=== PATIENT | male | born 1935 | race Caucasian/White ===

== ENCOUNTER 2017-02-14 18:22 | Inpatient (IN) | payer MEDICARE, BC ==
[~2017-02-14] VITALS: Ht 170.2 cm; Wt 87.0 kg
[~2017-02-14 18:22] MED LIST: ALLO100T PO; CLON-529 PO; COLC0.6T67 PO; LISI2.5T2 PO; METO100T14 PO; POLOS RIGHTEYE; TICA90TA PO
[2017-02-14 18:49] LABS: BASOPHILS # (AUTO) 0.1 X10'3 (0-0.2); BASOPHILS % (AUTO) 0.8 % (0-1); EOSINOPHILS # (AUTO) 0.2 X10'3 (0-0.9); EOSINOPHILS % (AUTO) 1.4 % (0-6); HEMATOCRIT 44.5 % (42.0-52.0); HEMOGLOBIN 14.8 g/dl (14.0-17.9); LYMPHOCYTES # (AUTO) 1.9 X10'3 (1.1-4.8); LYMPHOCYTES % (AUTO) 15.9 % (21-51); MEAN CORPUSCULAR HEMOGLOBIN 29.2 PG (27.0-31.0); MEAN CORPUSCULAR HGB CONC 33.2 % (33.0-36.5); MEAN CORPUSCULAR VOLUME 88.1 FL (78-98); MEAN PLATELET VOLUME 8.2 FL (7.4-10.4); MONOCYTES # (AUTO) 0.6 X10'3 (0-0.9); MONOCYTES % (AUTO) 4.9 % (2-12); NEUTROPHILS # (AUTO) 9.2 X10'3 (1.8-7.7); PLATELET COUNT 225 X10'3 (140-440); RED BLOOD COUNT 5.05 X10'6 (4.70-6.10); RED CELL DISTRIBUTION WIDTH 16.8 % (11.5-14.5); WHITE BLOOD COUNT 11.9 X10'3 (4.5-11.0)
[2017-02-14 19:00] LABS: INR 1.1 INR; PARTIAL THROMBOPLASTIN TIME 49 SECONDS (22-32); PROTHROMBIN TIME 11.4 SECONDS (9.0-12.0)
[2017-02-14 19:04] LABS: ALANINE AMINOTRANSFERASE 30 U/L (12-78); ALBUMIN 3.5 G/DL (3.4-5.0); ALBUMIN/GLOBULIN RATIO 0.8 (1.1-1.5); ALKALINE PHOSPHATASE 77 IU/L (46-116); ANION GAP 13 (8-16); ASPARTATE AMINO TRANSFERASE 59 U/L (10-37); BILIRUBIN,TOTAL 0.9 MG/DL (0.1-1.0); BLOOD UREA NITROGEN 79 MG/DL (7-18); BUN/CREATININE RATIO 15.6 (5.4-32.0); CALCIUM 9.8 MG/DL (8.5-10.1); CHLORIDE 105 MMOL/L (99-107); CREATININE 5.06 MG/DL (0.60-1.10); GLUCOSE 149 MG/DL (70-104); POTASSIUM 4.5 MMOL/L (3.5-5.1); SODIUM 142 MMOL/L (135-145); TOTAL CARBON DIOXIDE 24.2 MMOL/L (24-32); TOTAL PROTEIN 7.7 G/DL (6.4-8.2); eGFR 11 ML/MIN
[2017-02-14] MEDS ORDERED: GLIP5TAB13 PO (19:24)
[2017-02-14] MEDS ORDERED: OMEG1CAP PO (19:24)
[2017-02-14] MEDS ORDERED: ATOR10TA70 PO (19:24)
[2017-02-14] MEDS ORDERED: FURO-149 PO (19:24)
[2017-02-14] MEDS ORDERED: VALS160T24 PO (19:24)
[2017-02-14 20:12] LABS: CLARITY,URINE Clear (Clear); COLOR,URINE Yellow (Yellow); GLUCOSE, URINE 100 mg/dl (Neg); KETONES,URINE Negative (Neg); LEUKOCYTE ESTERASE ,URINE Negative (Neg); NITRITES, URINE Negative (Neg); OCCULT BLOOD,URINE Moderate (Neg); PROTEIN,URINE 100 mg/dl (Neg); UROBILINOGEN,URINE 0.2 E.U/dL (0.2-1.0)
[2017-02-14 20:22] LABS: UA COLLECTION TYPE CLN CATCH MIDSTREAM
[2017-02-14 20:25] LABS: BACTERIA,URINE NONE SEEN /HPF (Neg); MUCUS STRANDS NONE SEEN /LPF (Neg); RBC,URINE 0-2 /HPF (0-2); SQUAMOUS EPITHELIAL CELL,UR FEW /LPF (FEW); WBC,URINE 0-4 /HPF (0-4)
[2017-02-14] MEDS ORDERED: HYDROcodone/acetaminophen 5mg/325mg tablet PO PRN (21:25)
[2017-02-14] MEDS ORDERED: ondansetron/PF 4mg/2ml inj IV PRN (21:25)
[2017-02-14] MEDS ORDERED: HYDROmorphone 1 mg/ml syringe IV PRN ×2 (21:25)
[2017-02-14] MEDS ORDERED: mag hydrox/Alum hydrox/simeth 30ml oral suspension PO PRN (21:25)
[2017-02-14] MEDS ORDERED: bisacodyl 10mg suppository rectal RC PRN (21:25)
[2017-02-14] MEDS ORDERED: metoclopramide 5 mg/ml inj IV PRN (21:25)
[2017-02-14] MEDS ORDERED: diphenhydrAMINE 50 mg/ml inj IV PRN (21:25)
[2017-02-14] MEDS ORDERED: glucagon, human recombinant 1mg kit SUBCUT PRN (21:25)
[2017-02-14] MEDS ORDERED: dextrose 50%-water 50ml dispensing syringe IV PRN ×2 (21:25)
[2017-02-14] MEDS ORDERED: magnesium hydroxide 30ml (MOM) UD suspension PO PRN (21:25)
[2017-02-14] MEDS ORDERED: acetaminophen 650mg rectal suppository RC PRN (21:25)
[2017-02-14] MEDS ORDERED: dextrose ORAL solution 15 GM/59 ML bottle PO PRN ×2 (21:25)
[2017-02-14] MEDS ORDERED: acetaminophen 325mg tablet PO PRN ×2 (21:25)
[2017-02-14] MEDS ORDERED: diphenhydrAMINE 25mg capsule PO PRN (21:25)
[2017-02-14] MEDS ORDERED: MESSAGE TO PHARMACY PO ONE (21:25)
[2017-02-14] MEDS ORDERED: temazepam 15mg capsule PO PRN (21:57)
[2017-02-14 22:27] LABS: HEMOGLOBIN A1C 6.7 % (4.5-6.2)
[2017-02-14 22:29] LABS: MAGNESIUM 1.9 MG/DL (1.5-2.4)
[2017-02-14 23:00] VITALS: BP 119/80
[2017-02-15] VITALS (17 sets, daily range): BP systolic 104–161; BP diastolic 65–103
[2017-02-15 02:04] LABS: BASOPHILS % (AUTO) 0.4 % (0-1); EOSINOPHILS # (AUTO) 0.2 X10'3 (0-0.9); HEMATOCRIT 43.3 % (42.0-52.0); HEMOGLOBIN 14.3 g/dl (14.0-17.9); LYMPHOCYTES # (AUTO) 2.7 X10'3 (1.1-4.8); LYMPHOCYTES % (AUTO) 23.2 % (21-51); MEAN CORPUSCULAR HEMOGLOBIN 29.4 PG (27.0-31.0); MEAN PLATELET VOLUME 8.1 FL (7.4-10.4); MONOCYTES # (AUTO) 0.9 X10'3 (0-0.9); MONOCYTES % (AUTO) 7.5 % (2-12); NEUTROPHILS # (AUTO) 7.8 X10'3 (1.8-7.7); NEUTROPHILS % (AUTO) 66.9 % (42-75); PLATELET COUNT 191 X10'3 (140-440); RED BLOOD COUNT 4.87 X10'6 (4.70-6.10); RED CELL DISTRIBUTION WIDTH 16.5 % (11.5-14.5); WHITE BLOOD COUNT 11.7 X10'3 (4.5-11.0)
[2017-02-15 02:22] LABS: ALANINE AMINOTRANSFERASE 30 U/L (12-78); ALBUMIN 3.1 G/DL (3.4-5.0); ALBUMIN/GLOBULIN RATIO 0.8 (1.1-1.5); ALKALINE PHOSPHATASE 64 IU/L (46-116); ANION GAP 13 (8-16); ASPARTATE AMINO TRANSFERASE 108 U/L (10-37); BLOOD UREA NITROGEN 74 MG/DL (7-18); BUN/CREATININE RATIO 15.3 (5.4-32.0); CALCIUM 9.2 MG/DL (8.5-10.1); CHLORIDE 107 MMOL/L (99-107); CREATININE 4.84 MG/DL (0.60-1.10); GLUCOSE 109 MG/DL (70-104); POTASSIUM 4.2 MMOL/L (3.5-5.1); SODIUM 142 MMOL/L (135-145); TOTAL CARBON DIOXIDE 22.1 MMOL/L (24-32); eGFR 12 ML/MIN
[2017-02-15] MEDS ORDERED: pneumococcal 23-VAL P-sac vacc 25 mcg/0.5ml vial IMVAC ONE (06:15)
[2017-02-15] MEDS ORDERED: ticagrelor 90mg tablet PO SCH (08:00)
[2017-02-15] MEDS: docusate sod 100mg capsule PO SCH ×2 (08:00→20:00)
[2017-02-15] MEDS ORDERED: pantoprazole 40 MG vial IV SCH (08:00)
[2017-02-15] MEDS: cloNIDine 0.1 mg tablet PO SCH (09:41)
[2017-02-15] MEDS: allopurinol 100mg tablet PO SCH (09:41)
[2017-02-15] MEDS: atorvastatin 10mg tablet PO SCH (09:41)
[2017-02-15] MEDS: normal saline 1000ml 1,000 ML IV SCH ×2 (11:09)
[2017-02-15] MEDS ORDERED: IOHEXOL 350 MG/ML 150 ML injection IV ONE (12:47)
[2017-02-15] MEDS ORDERED: iohexol 350 MG/ML 50ML vial IV ONE (12:47)
[2017-02-15] MEDS ORDERED: LIDOcaine 1%/PF (10mg/ml) 5ml vial ONE ×2 (12:47→14:09)
[2017-02-15] MEDS ORDERED: midazolam 2 mg/2 ml injection ONE (12:55)
[2017-02-15] MEDS ORDERED: sodium bicarbonate (8.4%) 1 mEq/ml syringe IV STA (13:10)
[2017-02-15] MEDS ORDERED: heparin 10,000 units/1 ML INJ IV PRN (13:35)
[2017-02-15] MEDS ORDERED: heparin 1,000unit/ml 10ml vial 10 ML ONE (13:44)
[2017-02-15] MEDS ORDERED: ticagrelor 90mg tablet ONE (13:44)
[2017-02-15] MEDS ORDERED: tirofiban 5mg in NS 100mL 100 ML IV ONE (13:44)
[2017-02-15] MEDS ORDERED: DOBUTamine-DoBUTrex 500mg/D5W 250 ML IV ONE (14:04)
[2017-02-15] MEDS ORDERED: fentaNYL/PF 50MCG/1 ML 2ML syringe ONE (15:38)
[2017-02-15] MEDS: sodium bicarbonate (8.4%) inj. 100 MEQ in dextrose 5%-water 1,000 ML IV SCH ×2 (15:42→21:58)
[2017-02-15] MEDS ORDERED: normal saline 1000ml 1,000 ML IV SCH (15:45)
[2017-02-15] MEDS ORDERED: MESSAGE TO PHARMACY PO ONE ×2 (15:45→16:15)
[2017-02-15] MEDS ORDERED: proCHLORperazine 10 MG/2 ml inj IV PRN (15:45)
[2017-02-15] MEDS ORDERED: nitroGLYCERIN 0.4mg SUBLingual tab SL PRN (15:45)
[2017-02-15] MEDS ORDERED: OXAZEpam 15mg capsule PO PRN (15:45)
[2017-02-15] MEDS: tirofiban 5mg in NS 100mL 100 ML IV SCH ×2 (15:55→20:07)
[2017-02-15] MEDS: nitroGLYCERIN-Tridil 50MG/D5W 250 ML IV SCH (16:00)
[2017-02-15 18:08] LABS: BASOPHILS % (AUTO) 0.3 % (0-1); EOSINOPHILS # (AUTO) 0.2 X10'3 (0-0.9); EOSINOPHILS % (AUTO) 1.7 % (0-6); HEMATOCRIT 37.1 % (42.0-52.0); HEMOGLOBIN 12.4 g/dl (14.0-17.9); LYMPHOCYTES # (AUTO) 1.7 X10'3 (1.1-4.8); LYMPHOCYTES % (AUTO) 18.4 % (21-51); MEAN CORPUSCULAR HEMOGLOBIN 29.4 PG (27.0-31.0); MEAN CORPUSCULAR HGB CONC 33.4 % (33.0-36.5); MEAN CORPUSCULAR VOLUME 88.1 FL (78-98); MEAN PLATELET VOLUME 7.9 FL (7.4-10.4); MONOCYTES # (AUTO) 0.5 X10'3 (0-0.9); MONOCYTES % (AUTO) 5.6 % (2-12); PLATELET COUNT 182 X10'3 (140-440); RED BLOOD COUNT 4.21 X10'6 (4.70-6.10); RED CELL DISTRIBUTION WIDTH 16.8 % (11.5-14.5); WHITE BLOOD COUNT 9.4 X10'3 (4.5-11.0)
[2017-02-15] MEDS: insulin glargine (Lantus) pen - multi-dose SQ SCH (21:15)
[2017-02-16] VITALS (24 sets, daily range): BP systolic 91–152; BP diastolic 53–89
[2017-02-16 00:31] LABS: BASOPHILS % (AUTO) 0.4 % (0-1); EOSINOPHILS # (AUTO) 0.1 X10'3 (0-0.9); EOSINOPHILS % (AUTO) 1.8 % (0-6); HEMATOCRIT 35.4 % (42.0-52.0); HEMOGLOBIN 11.7 g/dl (14.0-17.9); LYMPHOCYTES # (AUTO) 1.5 X10'3 (1.1-4.8); LYMPHOCYTES % (AUTO) 19.5 % (21-51); MEAN CORPUSCULAR HEMOGLOBIN 29.6 PG (27.0-31.0); MEAN CORPUSCULAR HGB CONC 33.1 % (33.0-36.5); MEAN CORPUSCULAR VOLUME 89.3 FL (78-98); MEAN PLATELET VOLUME 8.1 FL (7.4-10.4); MONOCYTES # (AUTO) 0.6 X10'3 (0-0.9); MONOCYTES % (AUTO) 7.7 % (2-12); NEUTROPHILS # (AUTO) 5.6 X10'3 (1.8-7.7); NEUTROPHILS % (AUTO) 70.6 % (42-75); PLATELET COUNT 168 X10'3 (140-440); RED BLOOD COUNT 3.97 X10'6 (4.70-6.10); RED CELL DISTRIBUTION WIDTH 16.6 % (11.5-14.5); WHITE BLOOD COUNT 7.9 X10'3 (4.5-11.0)
[2017-02-16 00:46] LABS: ALANINE AMINOTRANSFERASE 35 U/L (12-78); ALBUMIN 2.5 G/DL (3.4-5.0); ALBUMIN/GLOBULIN RATIO 0.7 (1.1-1.5); ALKALINE PHOSPHATASE 59 IU/L (46-116); ANION GAP 10 (8-16); ASPARTATE AMINO TRANSFERASE 119 U/L (10-37); BLOOD UREA NITROGEN 66 MG/DL (7-18); BUN/CREATININE RATIO 15.7 (5.4-32.0); CALCIUM 8.2 MG/DL (8.5-10.1); CHLORIDE 106 MMOL/L (99-107); CREATININE 4.21 MG/DL (0.60-1.10); GLUCOSE 204 MG/DL (70-104); SODIUM 139 MMOL/L (135-145); TOTAL CARBON DIOXIDE 23.5 MMOL/L (24-32); TOTAL PROTEIN 5.9 G/DL (6.4-8.2); eGFR 14 ML/MIN
[2017-02-16] MEDS: sodium bicarbonate (8.4%) inj. 100 MEQ in dextrose 5%-water 1,000 ML IV SCH ×2 (02:13→10:13)
[2017-02-16] MEDS: cyclobenzaprine 10mg tablet PO PRN ×2 (03:16→21:27)
[2017-02-16] MEDS: atorvastatin 10mg tablet PO SCH (08:23)
[2017-02-16] MEDS: cloNIDine 0.1 mg tablet PO SCH (08:23)
[2017-02-16] MEDS: docusate sod 100mg capsule PO SCH ×2 (08:24→20:00)
[2017-02-16] MEDS: allopurinol 100mg tablet PO SCH (08:24)
[2017-02-16] MEDS: ticagrelor 90mg tablet PO SCH ×2 (08:24→21:27)
[2017-02-16] MEDS: pantoprazole 40mg Tablet.DR PO SCH (08:24)
[2017-02-16] MEDS: HYDROcodone/acetaminophen 10/325mg tab PO PRN (08:32)
[2017-02-16] MEDS ORDERED: pneumococcal 23-VAL P-sac vacc 25 mcg/0.5ml vial IMVAC ONE (09:00)
[2017-02-16] MEDS ORDERED: LIDOcaine 1%/PF (10mg/ml) 5ml vial ONE (13:19)
[2017-02-16] MEDS: colchicine 0.6mg tablet PO SCH (14:39)
[2017-02-16 15:50] LABS: ALANINE AMINOTRANSFERASE 40 U/L (12-78); ALBUMIN 3.2 G/DL (3.4-5.0); ALBUMIN/GLOBULIN RATIO 0.7 (1.1-1.5); ALKALINE PHOSPHATASE 66 IU/L (46-116); ANION GAP 10 (8-16); ASPARTATE AMINO TRANSFERASE 104 U/L (10-37); BILIRUBIN,TOTAL 1.9 MG/DL (0.1-1.0); BLOOD UREA NITROGEN 65 MG/DL (7-18); CALCIUM 9.1 MG/DL (8.5-10.1); CHLORIDE 100 MMOL/L (99-107); CREATININE 4.32 MG/DL (0.60-1.10); GLUCOSE 159 MG/DL (70-104); PHOSPHORUS 3.9 MG/DL (2.3-4.5); POTASSIUM 4.2 MMOL/L (3.5-5.1); SODIUM 137 MMOL/L (135-145); TOTAL PROTEIN 7.6 G/DL (6.4-8.2); eGFR 13 ML/MIN
[2017-02-16] MEDS: nitroGLYCERIN-Tridil 50MG/D5W 250 ML IV SCH (16:00)
[2017-02-16] MEDS: insulin Lispro (HumaLOG) vial - multi-dose SQ SCH (21:26)
[2017-02-16] MEDS: insulin glargine (Lantus) pen - multi-dose SQ SCH (21:26)
[2017-02-17] VITALS (18 sets, daily range): BP systolic 83–128; BP diastolic 51–80
[2017-02-17 05:14] LABS: BASOPHILS % (AUTO) 0.2 % (0-1); EOSINOPHILS # (AUTO) 0.2 X10'3 (0-0.9); EOSINOPHILS % (AUTO) 1.9 % (0-6); HEMATOCRIT 36.4 % (42.0-52.0); LYMPHOCYTES # (AUTO) 1.5 X10'3 (1.1-4.8); LYMPHOCYTES % (AUTO) 13.2 % (21-51); MEAN CORPUSCULAR HEMOGLOBIN 29.3 PG (27.0-31.0); MEAN CORPUSCULAR HGB CONC 32.9 % (33.0-36.5); MEAN CORPUSCULAR VOLUME 89.2 FL (78-98); MEAN PLATELET VOLUME 8.8 FL (7.4-10.4); MONOCYTES # (AUTO) 1.2 X10'3 (0-0.9); MONOCYTES % (AUTO) 10.3 % (2-12); NEUTROPHILS # (AUTO) 8.5 X10'3 (1.8-7.7); NEUTROPHILS % (AUTO) 74.4 % (42-75); PLATELET COUNT 156 X10'3 (140-440); RED BLOOD COUNT 4.08 X10'6 (4.70-6.10); RED CELL DISTRIBUTION WIDTH 17.3 % (11.5-14.5); WHITE BLOOD COUNT 11.5 X10'3 (4.5-11.0)
[2017-02-17 06:15] LABS: ALANINE AMINOTRANSFERASE 29 U/L (12-78); ALBUMIN 2.5 G/DL (3.4-5.0); ALBUMIN/GLOBULIN RATIO 0.7 (1.1-1.5); ALKALINE PHOSPHATASE 53 IU/L (46-116); ANION GAP 12 (8-16); ASPARTATE AMINO TRANSFERASE 52 U/L (10-37); BILIRUBIN,TOTAL 1.9 MG/DL (0.1-1.0); BLOOD UREA NITROGEN 66 MG/DL (7-18); BUN/CREATININE RATIO 13.8 (5.4-32.0); CALCIUM 8.6 MG/DL (8.5-10.1); CHLORIDE 103 MMOL/L (99-107); CREATININE 4.78 MG/DL (0.60-1.10); GLUCOSE 130 MG/DL (70-104); PHOSPHORUS 4.4 MG/DL (2.3-4.5); POTASSIUM 4.2 MMOL/L (3.5-5.1); SODIUM 139 MMOL/L (135-145); TOTAL CARBON DIOXIDE 23.7 MMOL/L (24-32); TOTAL PROTEIN 6.2 G/DL (6.4-8.2); eGFR 12 ML/MIN
[2017-02-17] MEDS: allopurinol 100mg tablet PO SCH (08:08)
[2017-02-17] MEDS: cloNIDine 0.1 mg tablet PO SCH (08:08)
[2017-02-17] MEDS: atorvastatin 10mg tablet PO SCH (08:09)
[2017-02-17] MEDS: ticagrelor 90mg tablet PO SCH ×2 (08:09→20:49)
[2017-02-17] MEDS: colchicine 0.6mg tablet PO SCH (08:09)
[2017-02-17] MEDS: pantoprazole 40mg Tablet.DR PO SCH (08:10)
[2017-02-17] MEDS: docusate sod 100mg capsule PO SCH ×2 (08:10→20:00)
[2017-02-17] MEDS: insulin Lispro (HumaLOG) vial - multi-dose SQ SCH ×2 (09:35→18:59)
[2017-02-17] MEDS: nitroGLYCERIN-Tridil 50MG/D5W 250 ML IV SCH (15:59)
[2017-02-17 16:44] LABS: ALANINE AMINOTRANSFERASE 27 U/L (12-78); ALBUMIN 2.5 G/DL (3.4-5.0); ALBUMIN/GLOBULIN RATIO 0.6 (1.1-1.5); ALKALINE PHOSPHATASE 61 IU/L (46-116); ANION GAP 14 (8-16); ASPARTATE AMINO TRANSFERASE 43 U/L (10-37); BILIRUBIN,TOTAL 1.7 MG/DL (0.1-1.0); BLOOD UREA NITROGEN 70 MG/DL (7-18); BUN/CREATININE RATIO 13.9 (5.4-32.0); CALCIUM 8.7 MG/DL (8.5-10.1); CHLORIDE 102 MMOL/L (99-107); CREATININE 5.02 MG/DL (0.60-1.10); GLUCOSE 195 MG/DL (70-104); PHOSPHORUS 4.1 MG/DL (2.3-4.5); POTASSIUM 4.5 MMOL/L (3.5-5.1); SODIUM 138 MMOL/L (135-145); TOTAL CARBON DIOXIDE 21.8 MMOL/L (24-32); TOTAL PROTEIN 6.4 G/DL (6.4-8.2); eGFR 11 ML/MIN
[2017-02-17] MEDS: HYDROcodone/acetaminophen 10/325mg tab PO PRN (20:49)
[2017-02-17] MEDS: insulin glargine (Lantus) pen - multi-dose SQ SCH (20:53)
[2017-02-18] VITALS (13 sets, daily range): BP systolic 102–146; BP diastolic 59–85
[2017-02-18 06:06] LABS: BASOPHILS % (AUTO) 0.2 % (0-1); EOSINOPHILS # (AUTO) 0.3 X10'3 (0-0.9); EOSINOPHILS % (AUTO) 2.4 % (0-6); HEMATOCRIT 35.2 % (42.0-52.0); HEMOGLOBIN 11.6 g/dl (14.0-17.9); LYMPHOCYTES % (AUTO) 18.4 % (21-51); MEAN CORPUSCULAR HEMOGLOBIN 29.3 PG (27.0-31.0); MEAN CORPUSCULAR VOLUME 88.8 FL (78-98); MEAN PLATELET VOLUME 9.1 FL (7.4-10.4); MONOCYTES % (AUTO) 9.2 % (2-12); NEUTROPHILS # (AUTO) 7.7 X10'3 (1.8-7.7); NEUTROPHILS % (AUTO) 69.8 % (42-75); PLATELET COUNT 147 X10'3 (140-440); RED BLOOD COUNT 3.97 X10'6 (4.70-6.10); RED CELL DISTRIBUTION WIDTH 16.3 % (11.5-14.5); WHITE BLOOD COUNT 11.1 X10'3 (4.5-11.0)
[2017-02-18 07:20] LABS: ALANINE AMINOTRANSFERASE 21 U/L (12-78); ALBUMIN 2.4 G/DL (3.4-5.0); ALBUMIN/GLOBULIN RATIO 0.6 (1.1-1.5); ALKALINE PHOSPHATASE 53 IU/L (46-116); ANION GAP 14 (8-16); ASPARTATE AMINO TRANSFERASE 21 U/L (10-37); BILIRUBIN,TOTAL 1.7 MG/DL (0.1-1.0); BLOOD UREA NITROGEN 77 MG/DL (7-18); BUN/CREATININE RATIO 13.2 (5.4-32.0); CALCIUM 8.8 MG/DL (8.5-10.1); CHLORIDE 102 MMOL/L (99-107); CREATININE 5.82 MG/DL (0.60-1.10); GLUCOSE 123 MG/DL (70-104); PHOSPHORUS 5.4 MG/DL (2.3-4.5); SODIUM 139 MMOL/L (135-145); TOTAL CARBON DIOXIDE 23.4 MMOL/L (24-32); TOTAL PROTEIN 6.4 G/DL (6.4-8.2); eGFR 9 ML/MIN
[2017-02-18] MEDS: docusate sod 100mg capsule PO SCH ×2 (08:00→20:50)
[2017-02-18] MEDS: cloNIDine 0.1 mg tablet PO SCH (08:02)
[2017-02-18] MEDS: allopurinol 100mg tablet PO SCH (08:02)
[2017-02-18] MEDS: pantoprazole 40mg Tablet.DR PO SCH (08:02)
[2017-02-18] MEDS: atorvastatin 10mg tablet PO SCH (08:03)
[2017-02-18] MEDS: ticagrelor 90mg tablet PO SCH ×2 (08:03→20:50)
[2017-02-18] MEDS: insulin Lispro (HumaLOG) vial - multi-dose SQ SCH ×2 (08:08→12:43)
[2017-02-18] MEDS: colchicine 0.6mg tablet PO SCH (08:15)
[2017-02-18 15:33] LABS: ALANINE AMINOTRANSFERASE 20 U/L (12-78); ALBUMIN 2.2 G/DL (3.4-5.0); ALBUMIN/GLOBULIN RATIO 0.6 (1.1-1.5); ALKALINE PHOSPHATASE 53 IU/L (46-116); ANION GAP 13 (8-16); ASPARTATE AMINO TRANSFERASE 22 U/L (10-37); BILIRUBIN,TOTAL 1.2 MG/DL (0.1-1.0); BLOOD UREA NITROGEN 86 MG/DL (7-18); BUN/CREATININE RATIO 14.2 (5.4-32.0); CALCIUM 8.3 MG/DL (8.5-10.1); CHLORIDE 102 MMOL/L (99-107); CREATININE 6.05 MG/DL (0.60-1.10); GLUCOSE 125 MG/DL (70-104); POTASSIUM 4.1 MMOL/L (3.5-5.1); SODIUM 137 MMOL/L (135-145); TOTAL CARBON DIOXIDE 22.4 MMOL/L (24-32); TOTAL PROTEIN 6.1 G/DL (6.4-8.2); eGFR 9 ML/MIN
[2017-02-18] MEDS: nitroGLYCERIN-Tridil 50MG/D5W 250 ML IV SCH (16:00)
[2017-02-18] MEDS ORDERED: epiNEPHrine 1 mg/ml inj ONE (17:47)
[2017-02-18] MEDS ORDERED: LIDOcaine 1% 30ml vial 30 ML ONE (17:48)
[2017-02-18] MEDS ORDERED: fentaNYL/PF 50MCG/1 ML 2ML syringe ONE (18:22)
[2017-02-18] MEDS ORDERED: midazolam 2 mg/2 ml injection ONE (18:22)
[2017-02-18] MEDS ORDERED: propofol inj 20 ML IV ONE ×2 (18:38→18:53)
[2017-02-18] MEDS ORDERED: LIDOcaine 1% 30ml vial IJ ONE (18:53)
[2017-02-18] MEDS ORDERED: epiNEPHrine 1 MG/ML 1 ml ampule **BRONCH ONLY IJ ONE (18:55)
[2017-02-18] MEDS ORDERED: ringers solution, lacted 1,000 ML IV SCH (19:01)
[2017-02-18] MEDS ORDERED: proCHLORperazine 10 MG/2 ml inj IV PRN (19:05)
[2017-02-18] MEDS ORDERED: meperidine/PF 25mg/ml syringe IV PRN ×3 (19:05)
[2017-02-18] MEDS ORDERED: ondansetron/PF 4mg/2ml inj IV PRN (19:05)
[2017-02-18] MEDS: insulin glargine (Lantus) pen - multi-dose SQ SCH (20:50)
[2017-02-19 03:00] VITALS: BP 137/79
[2017-02-19 05:45] LABS: BASOPHILS % (AUTO) 0.3 % (0-1); EOSINOPHILS # (AUTO) 0.3 X10'3 (0-0.9); EOSINOPHILS % (AUTO) 3.1 % (0-6); HEMATOCRIT 32.9 % (42.0-52.0); HEMOGLOBIN 10.9 g/dl (14.0-17.9); LYMPHOCYTES # (AUTO) 1.3 X10'3 (1.1-4.8); LYMPHOCYTES % (AUTO) 14.9 % (21-51); MEAN CORPUSCULAR HEMOGLOBIN 29.3 PG (27.0-31.0); MEAN PLATELET VOLUME 9.1 FL (7.4-10.4); MONOCYTES # (AUTO) 0.6 X10'3 (0-0.9); MONOCYTES % (AUTO) 7.1 % (2-12); NEUTROPHILS # (AUTO) 6.7 X10'3 (1.8-7.7); NEUTROPHILS % (AUTO) 74.6 % (42-75); PLATELET COUNT 147 X10'3 (140-440); RED CELL DISTRIBUTION WIDTH 16.6 % (11.5-14.5)
[2017-02-19] MEDS: docusate sod 100mg capsule PO SCH (08:00)
[2017-02-19 08:16] LABS: ALANINE AMINOTRANSFERASE 21 U/L (12-78); ALBUMIN 2.2 G/DL (3.4-5.0); ALBUMIN/GLOBULIN RATIO 0.6 (1.1-1.5); ALKALINE PHOSPHATASE 53 IU/L (46-116); ANION GAP 16 (8-16); ASPARTATE AMINO TRANSFERASE 18 U/L (10-37); BILIRUBIN,TOTAL 0.9 MG/DL (0.1-1.0); BLOOD UREA NITROGEN 86 MG/DL (7-18); BUN/CREATININE RATIO 14.5 (5.4-32.0); CALCIUM 8.2 MG/DL (8.5-10.1); CHLORIDE 104 MMOL/L (99-107); CREATININE 5.94 MG/DL (0.60-1.10); GLUCOSE 133 MG/DL (70-104); PHOSPHORUS 6.3 MG/DL (2.3-4.5); POTASSIUM 3.8 MMOL/L (3.5-5.1); SODIUM 140 MMOL/L (135-145); TOTAL CARBON DIOXIDE 20.1 MMOL/L (24-32); TOTAL PROTEIN 6.2 G/DL (6.4-8.2); eGFR 9 ML/MIN
[2017-02-19] MEDS: colchicine 0.6mg tablet PO SCH (08:35)
[2017-02-19] MEDS: allopurinol 100mg tablet PO SCH (08:36)
[2017-02-19] MEDS: pantoprazole 40mg Tablet.DR PO SCH (08:36)
[2017-02-19] MEDS: ticagrelor 90mg tablet PO SCH (08:36)
[2017-02-19] MEDS: atorvastatin 10mg tablet PO SCH (08:37)
[2017-02-19] MEDS: HYDROcodone/acetaminophen 10/325mg tab PO PRN (08:37)
[2017-02-19] MEDS: cloNIDine 0.1 mg tablet PO SCH (08:38)
[2017-02-19 11:00] VITALS: BP 110/78
== END 2017-02-19 14:00 | DRG 242 ==
LOC: ER 18:23 → ED HOLD 21:24 → PCU 3S 22:35 → ICU 2S 02-15 12:30 → CICU 2S 02-16 05:18 → PCU 3S 02-17 14:35
PROVIDERS: ADMIT Family Medicine; ATTEND Internal Medicine Critical Care Medicine
PROC: 027034Z Dilation of Coronary Artery, One Artery with Drug-eluting Intraluminal Device, Percutaneous Approach (ICD-10-PCS; 2017-02-15)
PROC: 5A12012 Performance of Cardiac Output, Single, Manual (ICD-10-PCS; 2017-02-15)
PROC: B2111ZZ Fluoroscopy of Multiple Coronary Arteries using Low Osmolar Contrast (ICD-10-PCS; 2017-02-15)
PROC: 02H63JZ Insertion of Pacemaker Lead into Right Atrium, Percutaneous Approach (ICD-10-PCS; 2017-02-18)
PROC: 02HK3JZ Insertion of Pacemaker Lead into Right Ventricle, Percutaneous Approach (ICD-10-PCS; 2017-02-18)
PROC: 0JH606Z Insertion of Pacemaker, Dual Chamber into Chest Subcutaneous Tissue and Fascia, Open Approach (ICD-10-PCS; principal; 2017-02-18 18:21)
DX: I21.19 ST elevation (STEMI) myocardial infarction involving other coronary artery of inferior wall (principal); I46.9 Cardiac arrest, cause unspecified; N17.9 Acute kidney failure, unspecified; I44.2 Atrioventricular block, complete; I13.2 Hypertensive heart and chronic kidney disease with heart failure and with stage 5 chronic kidney disease, or end stage renal disease; N18.5 Chronic kidney disease, stage 5; I50.20 Unspecified systolic (congestive) heart failure; M25.562 Pain in left knee; I95.9 Hypotension, unspecified; E11.65 Type 2 diabetes mellitus with hyperglycemia; Z96.643 Presence of artificial hip joint, bilateral; E11.22 Type 2 diabetes mellitus with diabetic chronic kidney disease; E66.9 Obesity, unspecified; M10.9 Gout, unspecified; D64.9 Anemia, unspecified; E78.00 Pure hypercholesterolemia, unspecified; I25.10 Atherosclerotic heart disease of native coronary artery without angina pectoris; Z90.49 Acquired absence of other specified parts of digestive tract; Z93.3 Colostomy status; Z88.6 Allergy status to analgesic agent; Z88.8 Allergy status to other drugs, medicaments and biological substances; Z79.899 Other long term (current) drug therapy; Z23 Encounter for immunization; Z68.30 Body mass index [BMI] 30.0-30.9, adult; Z95.5 Presence of coronary angioplasty implant and graft
CPT/HCPCS: 93454; 99285; C9600; 36415; 71048; 76000; 80053; 81001; 82948; 83036; 83690; 83735; 83880; 84100; 84443; 84484; 85025; 85347; 85610; 85730; 87070; 93005; 97110; 97116; 97161; 97530; 99152; 99153; A4565; A4620; A4649; A6257; A6449; A7000; C1725; C1769; C1785; C1874; C9113; J0171; J1250; J1644; J1815; J2001; J2250; J2704; J3010; J3246; J3490; J7030; J7120; Q9967

== ENCOUNTER 2019-08-22 12:58 | Outpatient (CLI) | payer MEDICARE, BC ==
[~2019-08-22 12:58] MED LIST changes: +ATOR10TA70 PO; -CLON-529 PO; -COLC0.6T67 PO; +FURO-149 PO; +HYDR-4069 PO; +LABE100T5 PO; -LISI2.5T2 PO; -METO100T14 PO; +MULT-25 PO; +NATE120T PO; -POLOS RIGHTEYE
== END 2019-08-22 23:59 | disposition home or self-care (01) ==
LOC: CARD DIAG 12:58
PROVIDERS: ATTEND Internal Medicine Cardiovascular Disease
DX: I08.3 Combined rheumatic disorders of mitral, aortic and tricuspid valves (principal)
CPT/HCPCS: 93306

== ENCOUNTER 2019-09-20 06:05 | Day surgery (SDC) | payer MEDICARE, BC ==
[2019-09-19 12:58] LABS: BASOPHILS % (AUTO) 0.4 % (0-1); EOSINOPHILS # (AUTO) 0.2 X10'3 (0-0.9); EOSINOPHILS % (AUTO) 1.9 % (0-6); HEMATOCRIT 35.5 % (42.0-52.0); HEMOGLOBIN 11.6 g/dl (14.0-17.9); LYMPHOCYTES # (AUTO) 1.8 X10'3 (1.1-4.8); LYMPHOCYTES % (AUTO) 19.3 % (21-51); MEAN CORPUSCULAR HEMOGLOBIN 29.1 PG (27.0-31.0); MEAN CORPUSCULAR HGB CONC 32.5 g/dL (33.0-36.5); MEAN CORPUSCULAR VOLUME 89.4 FL (78-98); MONOCYTES # (AUTO) 0.6 X10'3 (0-0.9); MONOCYTES % (AUTO) 6.2 % (2-12); NEUTROPHILS # (AUTO) 6.7 X10'3 (1.8-7.7); NEUTROPHILS % (AUTO) 72.2 % (42-75); PLATELET COUNT 187 X10'3 (140-440); RED BLOOD COUNT 3.98 X10'6 (4.70-6.10); WHITE BLOOD COUNT 9.2 X10'3 (4.5-11.0)
[2019-09-19 13:11] LABS: PARTIAL THROMBOPLASTIN TIME 30 SECONDS (22-32)
[2019-09-19 13:16] LABS: ALBUMIN 3.6 G/DL (3.4-5.0); ANION GAP 10 (8-16); BLOOD UREA NITROGEN 32 MG/DL (7-18); BUN/CREATININE RATIO 5.2 (5.4-32.0); CALCIUM 9.1 MG/DL (8.5-10.1); CHLORIDE 101 MMOL/L (99-107); CREATININE 6.19 MG/DL (0.60-1.10); GLUCOSE 157 MG/DL (70-104); POTASSIUM 4.8 MMOL/L (3.5-5.1); SODIUM 139 MMOL/L (135-145); TOTAL CARBON DIOXIDE 27.9 MMOL/L (24-32); eGFR 9 ML/MIN
[~2019-09-20] VITALS: Ht 170.2 cm; Wt 84.9 kg
[2019-09-20] VITALS (11 sets, daily range): BP systolic 98–151; BP diastolic 51–75
[2019-09-20] MEDS ORDERED: acetylcysteine 200 MG/ml 4ml vial PO PRN (06:30)
[2019-09-20] MEDS ORDERED: SEVE800T8 PO (06:35)
[2019-09-20] MEDS ORDERED: APIX5TAB3 PO (06:35)
[2019-09-20] MEDS ORDERED: hydralazine PO (06:35)
[2019-09-20] MEDS ORDERED: TICA60TA PO (06:35)
[2019-09-20] MEDS ORDERED: LORazepam 0.5 MG tablet PO PRN (06:35)
[2019-09-20] MEDS ORDERED: FOLI1TAB34 PO (06:35)
[2019-09-20] MEDS ORDERED: normal saline 1,000 ML IV SCH (06:35)
[2019-09-20] MEDS ORDERED: CARV6.253 PO (06:41)
[2019-09-20] MEDS ORDERED: LOSA25TA96 PO (06:41)
[2019-09-20] MEDS ORDERED: ACET600C PO (06:41)
[2019-09-20] MEDS ORDERED: sodium bicarbonate (8.4%) inj. 150 ML in dextrose 5%-water 1,000 ML IV ONE (06:55)
--- NOTE | 2019-09-20 07:00 | NUR ---
Emptied pt colostomy bag 50ml liquid brown stool.
[2019-09-20] MEDS ORDERED: nitroGLYCERIN-Tridil 50MG/D5W 250 ML IV ONE (07:46)
[2019-09-20] MEDS ORDERED: midazolam 2 mg/2 ml injection ONE (07:46)
[2019-09-20] MEDS ORDERED: verapamil 2.5 mg/ml inj IV ONE (07:46)
[2019-09-20] MEDS ORDERED: iohexol 350 MG/ML 50ML vial IV ONE (07:47)
[2019-09-20] MEDS ORDERED: fentaNYL/PF 50MCG/1 ML 2ML syringe ONE (07:47)
[2019-09-20] MEDS ORDERED: LIDOcaine 1% (10mg/ml)w/preservative injection 20ml MDV ONE (07:47)
[2019-09-20] MEDS ORDERED: iohexol 350MG/ML 100ml bottle IV ONE ×2 (07:47→08:50)
[2019-09-20] MEDS ORDERED: heparin 1,000unit/ml 10ml vial 10 ML ONE (07:47)
[2019-09-20] MEDS ORDERED: heparin 25,000 UNIT/250ml bag 250 ML IV ONE (08:50)
[2019-09-20] MEDS ORDERED: ticagrelor 90mg tablet ONE (09:10)
[2019-09-20] MEDS ORDERED: heparin 25,000 UNIT/250ml bag 250 ML IV SCH (10:00)
--- NOTE | 2019-09-20 10:30 | NUR ---
Heparin stopped as ordered
--- NOTE | 2019-09-20 10:45 | NUR ---
pt ate 100% of breakfast tray. 350ml oral fluid intake.
[2019-09-20 11:01] LABS: ISTAT HGB ART 10.9 g/dl (14.0-18.0); ISTAT Hct ART 32 %PCV (42-52); ISTAT O2 SATURATION ARTERIAL 97 % (95-98); ISTAT SOURCE ART
--- NOTE | 2019-09-20 12:00 | NUR ---
burped pt colostomy bag.
--- NOTE | 2019-09-20 12:30 | NUR ---
Pt ate 100% of lunch tray.
== END 2019-09-20 16:00 | disposition home or self-care (01) ==
LOC: SSTAY O 06:05
PROVIDERS: ATTEND Internal Medicine Cardiovascular Disease
DX: R06.02 Shortness of breath (principal); R53.83 Other fatigue; I25.10 Atherosclerotic heart disease of native coronary artery without angina pectoris; E11.22 Type 2 diabetes mellitus with diabetic chronic kidney disease; I13.2 Hypertensive heart and chronic kidney disease with heart failure and with stage 5 chronic kidney disease, or end stage renal disease; N18.6 End stage renal disease; I50.22 Chronic systolic (congestive) heart failure; I48.0 Paroxysmal atrial fibrillation; E78.49 Other hyperlipidemia; I49.5 Sick sinus syndrome; Z95.5 Presence of coronary angioplasty implant and graft; Z99.2 Dependence on renal dialysis; Z93.3 Colostomy status; Z88.8 Allergy status to other drugs, medicaments and biological substances
CPT/HCPCS: 36415; 76937; 80048; 82803; 85014; 85025; 85347; 85610; 85730; 93005; 93460; 99152; 99153; C1725; C1751; C1769; C1874; C1894; C9600; J1644; J2001; J2250; J3010; J7030; Q9967; 93458; A4620; A5120; A6258; J3490

== ENCOUNTER 2021-11-29 20:03 | Inpatient (IN) | payer MEDICARE, BC ==
[~2021-11-29] VITALS: Ht 172.7 cm; Wt 90.9 kg
[~2021-11-29 20:03] MED LIST changes: +ACET600C PO; +APIX5TAB3 PO; +CARV6.253 PO; +FOLI1TAB34 PO; -HYDR-4069 PO; -LABE100T5 PO; +LOSA25TA96 PO; -MULT-25 PO; +SEVE800T8 PO; +TICA60TA PO; -TICA90TA PO
[2021-11-29] MEDS ORDERED: ondansetron/PF 4mg/2ml inj IV ONE (21:20)
[2021-11-29 21:34] LABS: BASOPHILS # (AUTO) 0.1 X10'3 (0-0.2); BASOPHILS % (AUTO) 0.6 % (0-1); EOSINOPHILS # (AUTO) 0.1 X10'3 (0-0.9); EOSINOPHILS % (AUTO) 0.7 % (0-6); HEMATOCRIT 46.8 % (42.0-52.0); LYMPHOCYTES # (AUTO) 1.1 X10'3 (1.1-4.8); LYMPHOCYTES % (AUTO) 11.5 % (21-51); MEAN CORPUSCULAR HEMOGLOBIN 29.4 PG (27.0-31.0); MEAN CORPUSCULAR VOLUME 91.9 FL (78-98); MEAN PLATELET VOLUME 8.8 FL (7.4-10.4); MONOCYTES # (AUTO) 0.6 X10'3 (0-0.9); MONOCYTES % (AUTO) 5.9 % (2-12); NEUTROPHILS # (AUTO) 7.7 X10'3 (1.8-7.7); NEUTROPHILS % (AUTO) 81.3 % (42-75); PLATELET COUNT 152 X10'3 (140-440); RED BLOOD COUNT 5.09 X10'6 (4.70-6.10); RED CELL DISTRIBUTION WIDTH 19.7 % (11.5-14.5); WHITE BLOOD COUNT 9.4 X10'3 (4.5-11.0)
[2021-11-29 21:51] LABS: ALANINE AMINOTRANSFERASE 12 U/L (12-78); ALBUMIN/GLOBULIN RATIO 0.7 (1.1-1.5); ALKALINE PHOSPHATASE 115 IU/L (46-116); ANION GAP 8 (8-16); ASPARTATE AMINO TRANSFERASE 22 U/L (10-37); BILIRUBIN,TOTAL 2.8 MG/DL (0.1-1.0); BLOOD UREA NITROGEN 22 MG/DL (7-18); BUN/CREATININE RATIO 4.8 (5.4-32.0); CALCIUM 8.6 MG/DL (8.5-10.1); CHLORIDE 98 MMOL/L (99-107); CREATININE 4.61 MG/DL (0.60-1.10); GLUCOSE 95 MG/DL (70-104); SODIUM 141 MMOL/L (135-145); TOTAL CARBON DIOXIDE 35.2 MMOL/L (24-32); TOTAL PROTEIN 7.6 G/DL (6.4-8.2); eGFR 12 ML/MIN
[2021-11-29 21:54] LABS: MAGNESIUM 2.3 MG/DL (1.5-2.4)
[2021-11-29 21:57] LABS: ANISOCYTOSIS 2+; PLATELET ESTIMATE NORMAL
[2021-11-29 21:58] LABS: TARGET CELLS 1+
[2021-11-29] MEDS ORDERED: heparin 10,000 units/1 ML INJ IV PRN (22:20)
[2021-11-29] MEDS ORDERED: heparin 10,000 units/1 ML INJ IV ONE (22:20)
[2021-11-29] MEDS: heparin 25,000 UNIT/250ml bag 250 ML IV PRN (23:05)
[2021-11-30] MEDS ORDERED: diphenhydrAMINE 25mg capsule PO PRN (00:20)
[2021-11-30] MEDS ORDERED: ondansetron 4mg rapidly disintigrating tab PO PRN (00:20)
[2021-11-30] MEDS ORDERED: acetaminophen 650mg rectal suppository RC PRN (00:20)
[2021-11-30] MEDS ORDERED: mag hydrox/Alum hydrox/simeth 30ml oral suspension PO PRN (00:20)
[2021-11-30] MEDS ORDERED: bisacodyl 10mg suppository rectal RC PRN (00:20)
[2021-11-30] MEDS ORDERED: diphenhydrAMINE 50 mg/ml inj IV PRN (00:20)
[2021-11-30] MEDS ORDERED: acetaminophen 325mg tablet PO PRN ×2 (00:20)
[2021-11-30] MEDS ORDERED: HYDROcodone/acetaminophen 5mg/325mg tablet PO PRN (00:20)
[2021-11-30] MEDS ORDERED: magnesium hydroxide 30ml (MOM) UD suspension PO PRN (00:20)
[2021-11-30] MEDS ORDERED: morphine 2 MG/ML inj. syringe IV PRN ×2 (00:20)
[2021-11-30] MEDS ORDERED: HYDROcodone/acetaminophen 10/325mg tab PO PRN (00:20)
[2021-11-30] MEDS ORDERED: glucagon, human recombinant 1mg kit SUBCUT PRN (00:25)
[2021-11-30] MEDS ORDERED: DEXTROSE 15 GM of carb/4 tabs (each vial/BOTTLE has 4 tablets) PO PRN ×2 (00:25)
[2021-11-30] MEDS ORDERED: dextrose 50%-water 50ml dispensing syringe IV PRN ×2 (00:25)
[2021-11-30] MEDS ORDERED: MESSAGE TO PHARMACY PO ONE (00:25)
[2021-11-30] MEDS ORDERED: insulin Lispro (HumaLOG) vial - multi-dose SQ SCH (00:25)
[2021-11-30] MEDS: normal saline 1000ml 1,000 ML IV SCH (00:35)
[2021-11-30] MEDS: ampicill/sulbac 1.5gm/NS 100ml 100 ML IV SCH (02:41)
[2021-11-30] MEDS ORDERED: HYDR-4069 PO (04:23)
[2021-11-30] MEDS ORDERED: SEVE800T7 PO (04:23)
[2021-11-30] MEDS ORDERED: DOCU50CA13 PO (04:23)
[2021-11-30] MEDS ORDERED: PRAV40TA3 PO (04:23)
[2021-11-30] MEDS ORDERED: OMEG1CAP13 PO (04:23)
[2021-11-30] MEDS ORDERED: CLOP75TA34 PO (04:23)
[2021-11-30] MEDS ORDERED: MIDO10TA PO (04:23)
--- NOTE | 2021-11-30 07:26 | NUR ---
REPORT GIVEN TO CLAIRE JASMINE.
--- NOTE | 2021-11-30 07:27 | NUR ---
Patient in room ED 5. I have received report from CLAIRE CORTEZ FROM ER and had the opportunity to ask questions and assume patient care.
[2021-11-30] MEDS: docusate sod 100mg capsule PO SCH ×2 (09:12→20:00)
[2021-11-30] MEDS: pantoprazole 40mg Tablet.DR PO SCH (09:12)
[2021-11-30 10:00] VITALS: BP 78/52
[2021-11-30] MEDS: heparin 25,000 UNIT/250ml bag 250 ML IV PRN (12:17)
[2021-11-30] MEDS ORDERED: normal saline 500ml IV soln 500 ML IV ONE ×2 (12:37→12:55)
[2021-11-30] MEDS ORDERED: vancomycin/NS 1 GM ADD-VANTAGE 250 ML IV ONE (13:10)
[2021-11-30] MEDS ORDERED: cefepime 1GM/NS ADD-VANTAGE 100 ML IV ONE (13:10)
--- NOTE | 2021-11-30 13:15 | NUR ---
PER DR PATIENT CAN HAVE 250ML BOLUSES TO KEEP MAP 60 AND HIGHER UP TO 1000 MLS
[2021-11-30 14:26] LABS: BASOPHILS % (AUTO) 0.5 % (0-1); EOSINOPHILS # (AUTO) 0.1 X10'3 (0-0.9); EOSINOPHILS % (AUTO) 0.8 % (0-6); HEMATOCRIT 45.7 % (42.0-52.0); HEMOGLOBIN 14.8 g/dl (14.0-17.9); LYMPHOCYTES # (AUTO) 0.9 X10'3 (1.1-4.8); LYMPHOCYTES % (AUTO) 12.9 % (21-51); MEAN CORPUSCULAR HEMOGLOBIN 29.5 PG (27.0-31.0); MEAN CORPUSCULAR HGB CONC 32.4 g/dL (33.0-36.5); MEAN CORPUSCULAR VOLUME 91.2 FL (78-98); MEAN PLATELET VOLUME 8.6 FL (7.4-10.4); MONOCYTES # (AUTO) 0.5 X10'3 (0-0.9); MONOCYTES % (AUTO) 6.8 % (2-12); NEUTROPHILS # (AUTO) 5.7 X10'3 (1.8-7.7); PLATELET COUNT 122 X10'3 (140-440); RED BLOOD COUNT 5.02 X10'6 (4.70-6.10); RED CELL DISTRIBUTION WIDTH 19.8 % (11.5-14.5); WHITE BLOOD COUNT 7.2 X10'3 (4.5-11.0)
[2021-11-30 14:38] LABS: ALBUMIN 2.8 G/DL (3.4-5.0); ANION GAP 9 (8-16); BLOOD UREA NITROGEN 26 MG/DL (7-18); BUN/CREATININE RATIO 5.4 (5.4-32.0); CALCIUM 8.7 MG/DL (8.5-10.1); CHLORIDE 98 MMOL/L (99-107); CREATININE 4.83 MG/DL (0.60-1.10); GLUCOSE 112 MG/DL (70-104); SODIUM 141 MMOL/L (135-145); TOTAL CARBON DIOXIDE 33.6 MMOL/L (24-32); eGFR 11 ML/MIN
[2021-11-30 14:40] LABS: POTASSIUM 4.8 MMOL/L (3.5-5.1)
--- NOTE | 2021-11-30 14:49 | NUR ---
PAGER ID: [phone] MESSAGE: [id number] Elizabeth [facility], [place] [phone]
[2021-11-30] MEDS ORDERED: apixaban 2.5mg tablet PO SCH (15:05)
[2021-11-30] MEDS: ondansetron/PF 4mg/2ml inj IV PRN (15:58)
[2021-11-30 18:00] VITALS: BP 62/38
[2021-11-30] MEDS ORDERED: predniSONE 20 mg tablet PO ONE (18:04)
[2021-11-30] MEDS: apixaban 2.5mg tablet PO SCH (18:11)
--- NOTE | 2021-11-30 18:35 | NUR ---
Patient in room JALEN 350. I have received report from CLAIRE Mann and had the opportunity to ask questions and assume patient care. Patient sleeping comfortably, is at the bedside.
--- NOTE | 2021-11-30 19:38 | NUR ---
Problems reprioritized. Patient report given, questions answered & plan of care reviewed with CLAIRE CHESTER.
[2021-11-30] MEDS: insulin glargine (Lantus) pen - multi-dose SQ SCH (21:00)
[2021-11-30] MEDS ORDERED: temazepam 15mg capsule PO PRN (21:00)
[2021-11-30 22:00] VITALS: BP 98/63
[2021-12-01] VITALS (8 sets, daily range): BP systolic 75–95; BP diastolic 47–68
[2021-12-01] MEDS: ampicill/sulbac 1.5gm/NS 100ml 100 ML IV SCH (02:30)
[2021-12-01 06:00] LABS: BASOPHILS % (AUTO) 0.2 % (0-1); EOSINOPHILS % (AUTO) 0 % (0-6); HEMATOCRIT 39.9 % (42.0-52.0); LYMPHOCYTES # (AUTO) 0.6 X10'3 (1.1-4.8); MEAN CORPUSCULAR HEMOGLOBIN 29.7 PG (27.0-31.0); MEAN CORPUSCULAR HGB CONC 32.7 g/dL (33.0-36.5); MEAN CORPUSCULAR VOLUME 90.9 FL (78-98); MEAN PLATELET VOLUME 8.7 FL (7.4-10.4); MONOCYTES # (AUTO) 0.2 X10'3 (0-0.9); MONOCYTES % (AUTO) 4.2 % (2-12); NEUTROPHILS # (AUTO) 4.6 X10'3 (1.8-7.7); NEUTROPHILS % (AUTO) 84.6 % (42-75); PLATELET COUNT 126 X10'3 (140-440); RED BLOOD COUNT 4.39 X10'6 (4.70-6.10); RED CELL DISTRIBUTION WIDTH 18.9 % (11.5-14.5); WHITE BLOOD COUNT 5.4 X10'3 (4.5-11.0)
--- NOTE | 2021-12-01 06:10 | NUR ---
Problems reprioritized. Patient report given, questions answered & plan of care reviewed with CLAIRE Malcolm.
[2021-12-01 06:15] LABS: ALANINE AMINOTRANSFERASE 8 U/L (12-78); ALBUMIN 2.5 G/DL (3.4-5.0); ALBUMIN/GLOBULIN RATIO 0.6 (1.1-1.5); ALKALINE PHOSPHATASE 86 IU/L (46-116); ANION GAP 9 (8-16); ASPARTATE AMINO TRANSFERASE 18 U/L (10-37); BILIRUBIN,TOTAL 2.2 MG/DL (0.1-1.0); BLOOD UREA NITROGEN 29 MG/DL (7-18); BUN/CREATININE RATIO 5.4 (5.4-32.0); CALCIUM 8.1 MG/DL (8.5-10.1); CHLORIDE 99 MMOL/L (99-107); CREATININE 5.33 MG/DL (0.60-1.10); GLUCOSE 124 MG/DL (70-104); POTASSIUM 4.9 MMOL/L (3.5-5.1); SODIUM 139 MMOL/L (135-145); TOTAL CARBON DIOXIDE 31.5 MMOL/L (24-32); TOTAL PROTEIN 6.6 G/DL (6.4-8.2); eGFR 10 ML/MIN
--- NOTE | 2021-12-01 07:01 | NUR ---
Patient in room JALEN 350. I have received report from Janine RANGEL and had the opportunity to ask questions and assume patient care.
[2021-12-01 07:29] LABS: HEMOGLOBIN A1C 5.9 % (4.5-6.2)
[2021-12-01] MEDS ORDERED: LIDOcaine 1% (10mg/ml) 2ml vial SQ ONE (08:00)
[2021-12-01] MEDS ORDERED: heparin 1,000unit/ml 10ml vial 10 ML IV ONE (08:00)
[2021-12-01] MEDS ORDERED: heparin 1,000 units/ml 10ml inj IV ONE (08:00)
[2021-12-01] MEDS: pantoprazole 40mg Tablet.DR PO SCH (08:22)
[2021-12-01] MEDS: docusate sod 100mg capsule PO SCH ×2 (08:22→20:38)
[2021-12-01] MEDS: apixaban 2.5mg tablet PO SCH ×2 (08:24→20:38)
[2021-12-01] MEDS: cefepime 1GM/NS ADD-VANTAGE 100 ML IV SCH (09:41)
[2021-12-01] MEDS: linezolid 600mg/300ml PREMIX 300 ML IV SCH ×2 (10:25→20:34)
[2021-12-01] MEDS: normal saline 1000ml 1,000 ML IV SCH (10:25)
[2021-12-01] MEDS: midodrine 5mg tablet PO SCH ×2 (13:40→20:37)
--- NOTE | 2021-12-01 14:30 | NUR ---
Spoke to Antoinette with Dr Bazzi office to get patients most recent Echo from Last week.
--- NOTE | 2021-12-01 15:23 | NUR ---
PRESSURE ULCER EDUCATION: DEFINITION: A pressure ulcer is an area of skin that breaks down when you stay in one position too long. The constant pressure against the skin reduces the blood flow to that area and the affected tissue dies. CAUSES: "Being bedridden or in a wheelchair "Fragile skin "Having a chronic condition, such as diabetes or vascular disease "Inability to move certain parts of your body without assistance "Older age "Incontinence of urine or stool SYMPTOMS: "A reddened area that DOES NOT turn white when pressed on - this can be the beginning of a pressure ulcer "A blister, deep sore or a crater - these can be advanced pressure ulcers FIRST AID: "Relieve the pressure on this area "Keep the area clean and dry "Call your primary doctor if you see any of the above symptoms "DO NOT massage the area "DO NOT use a donut shaped or ring shaped pillow- these actually interfere with the blood flow and cause complications PREVENTION: "Check for pressure ulcers everyday "Change position at least every two hours to relieve pressure "Use items that help relieve pressure- pillows, sheepskin, foam padding, and powders. "Keep skin clean and dry "Eat healthy well balanced meals "Exercise daily IF YOU SEE ANY OF THESE SYMPTOMS WHILE IN THE HOSPITAL - TELL YOUR NURSE IMMEDIATELY. IF YOU SEE ANY OF THESE SYMPTOMS WHILE AT HOME OR HAVE ANY QUESTIONS OR CONCERNS ABOUT PRESSURE ULCERS - CALL YOUR PRIMARY DOCTOR IMMEDIATELY. Addendum: 12/01/21 at 1523 by Hallie Lindsay LVN Amended: Links added.
[2021-12-01] MEDS ORDERED: midodrine tablet 2.5 MG TABLET PO PRN (16:40)
--- NOTE | 2021-12-01 16:57 | NUR ---
Unable to give patient 1600 dose of midodrine due to being to close to the 1340 dose. Order is for TID. Spoke to laundry or dry cleaners counter clerk Aline and she states to have material handler 1st shift give the medication tonight. Pharmacist unable to change order to reflect. Will advise NOC shift
--- NOTE | 2021-12-01 18:46 | NUR ---
Problems reprioritized. Patient report given, questions answered & plan of care reviewed with Danielle Santos RN.
--- NOTE | 2021-12-01 18:50 | NUR ---
Patient in room JALEN 350. I have received report from DELGADO RANGEL and had the opportunity to ask questions and assume patient care.
[2021-12-01] MEDS: sevelamer carbonate 800mg tablet PO SCH (20:38)
[2021-12-01] MEDS: allopurinol 100mg tablet PO SCH (20:38)
[2021-12-01] MEDS: insulin glargine (Lantus) pen - multi-dose SQ SCH (21:00)
[2021-12-02 06:00] VITALS: BP 104/69
--- NOTE | 2021-12-02 06:32 | NUR ---
Problems reprioritized. Patient report given, questions answered & plan of care reviewed with DELGADO RANGEL.
--- NOTE | 2021-12-02 07:12 | NUR ---
Patient in room JALEN 350. I have received report from Danielle Santos RN and had the opportunity to ask questions and assume patient care.
[2021-12-02] MEDS ORDERED: DOCUSATE SODIUM PO SCH (08:00)
[2021-12-02] MEDS: sevelamer carbonate 800mg tablet PO SCH ×3 (08:00→21:00)
[2021-12-02] MEDS: furosemide 40mg tablet PO SCH (08:00)
[2021-12-02] MEDS: docusate sod 100mg capsule PO SCH ×2 (08:00→23:58)
[2021-12-02] MEDS: cefepime 1GM/NS ADD-VANTAGE 100 ML IV SCH (08:41)
[2021-12-02] MEDS: allopurinol 100mg tablet PO SCH (08:42)
[2021-12-02] MEDS: midodrine 5mg tablet PO SCH ×3 (08:42→17:04)
[2021-12-02] MEDS: apixaban 2.5mg tablet PO SCH ×2 (08:42→23:58)
[2021-12-02] MEDS: clopidogrel 75mg tablet PO SCH (08:42)
[2021-12-02] MEDS: pantoprazole 40mg Tablet.DR PO SCH (08:42)
[2021-12-02] MEDS: OMEGA-3/DHA/EPA/FISH OIL 1 EACH CAPSULE.DR PO SCH (08:43)
[2021-12-02] MEDS: pravastatin 40mg tablet PO SCH (08:45)
[2021-12-02 10:00] VITALS: BP 102/65
--- NOTE | 2021-12-02 11:11 | NUR ---
Called Dr Cottrell regarding patient feeling like he needs to void bladder scanned patient shows he has 403ml's in bladder. Per Dr Cottrell straight cath x1, Dr Cottrell is aware of patient current BP of 102/65 HR 102. He is in agreement to given patient Tramadol 50mg PO Q6H for pain. Advised Vascular US done, and Angio won't be available until this afternoon ( Per Dr Cottrell he spoke with Dr Orlando. )
[2021-12-02] MEDS ORDERED: LIDOcaine 2% 10ml TOPICAL JELLY (Urojet) MM ONE ×2 (11:15→16:40)
[2021-12-02] MEDS ORDERED: heparin 1,000 units/ml 10ml inj IV ONE (11:25)
[2021-12-02] MEDS ORDERED: albumin (human) 25% 100ml IV 100 ML IV PRN (11:25)
[2021-12-02] MEDS ORDERED: heparin 1,000unit/ml 10ml vial 10 ML IV ONE (11:25)
[2021-12-02] MEDS: traMADol 50MG tablet PO PRN (11:27)
[2021-12-02] MEDS: linezolid 600mg/300ml PREMIX 300 ML IV SCH ×2 (11:39→23:58)
--- NOTE | 2021-12-02 12:03 | NUR ---
PAGER ID: [phone] MESSAGE: Yun-Surg [phone] Re: Elizabeth 350B please call re: Dr Cottrell would like you to call urologist. Tried to straight cath and get dark red blood patient on Eliquis
--- NOTE | 2021-12-02 12:04 | NUR ---
Spoke to Dr Cottrell regarding trying to straight cath patient and dark red blood with no urine. Did not want to advance further. Per Dr Cottrell have the hospitalist contact the urologist.
[2021-12-02] MEDS ORDERED: iohexol 300mg/ml 100ml inj. ONE ×2 (12:20→13:47)
[2021-12-02] MEDS ORDERED: fentaNYL/PF 50MCG/1 ML 2ML syringe ONE (12:20)
[2021-12-02] MEDS ORDERED: LIDOcaine 1% 30ml preserv. free vial ONE (12:20)
[2021-12-02] MEDS ORDERED: midazolam 1 mg/ML 2ml injection ONE (12:20)
[2021-12-02] MEDS ORDERED: heparin 1,000 UNITS/NS 500ml 0 ML ONE (12:21)
--- NOTE | 2021-12-02 12:34 | NUR ---
Patient going do Angio via bed for fistulagram
[2021-12-02] MEDS ORDERED: methylPREDNISolone sod succ 125mg/2ml vial ONE (12:48)
--- NOTE | 2021-12-02 12:54 | NUR ---
Spoke to patient per the request of Lorenza with Angio to see if she knows what type of reaction patient has had in the past to iodine. Per she does not know but Dr Laguna office did the procedure and she is going to call him. I also asked if she knows if he has ever had any reactions to solumedrol and patients states not that she is aware of. Called Lorenza back in Angio and advised.
[2021-12-02] MEDS ORDERED: heparin 1,000 UNITS/NS 500ml 500 ML ONE (13:02)
[2021-12-02] MEDS ORDERED: ondansetron/PF 4mg/2ml inj ONE (13:08)
--- NOTE | 2021-12-02 13:20 | NUR ---
[facility] Consult: Pt admit DX RLE cellulitis w/ possible sepsis, hypotension, cardiomyopathy EF 25%, L leg DVT, and hx ESRD on HD as well as colostomy per EMR. Noted pt w/ R heel unstageable PI as well as coccyx SDTI per WOC note. Pt refused first meal dinner 11/30 w/ ~25-50% two carb controlled/renal meals he received yesterday currently NPO this AM per EMR. Colostomy 200-350ml output per EMR. Pt/daughter seen by RD at bedside for written/verbal low-tyramine diet ed w/ RD contact information provided. Pt is agreeable to Radhika vinson BIDBD for wound healing as well; MD notified. RD d/w RN regarding removal of carb controlled diet restriction given A1C 5.9% on no DM meds at home per EMR and given advanced age if MD agreeable. Will monitor for further nutrition intervention needs this admit. Rec: 1. continue renal diet; removal carb controlled restriction given age/A1C 5.9% 2. Radhika vinson BIDBD for wound healing; pending MD verification in EMR 3. monitor for additional ONS needs pending further PO trends 4. Phos binder w/ meals on HD 5. bowel care per rx; colostomy output WNL per EMR 6. scaled wts w/ HD Addendum: 12/02/21 at [address] Amended: Links added.
--- NOTE | 2021-12-02 13:34 | NUR ---
Per she called Dr Laguna office and they advised her the last time they gave the patient contrast they had to give him 3 tablets of Prednisone and Benadryl PO 25 mg x1 1 hour prior to procedure. Caitlin GENTILE) w/ Dr Amin office. Called Angio and spoke to Sunshine RANGEL and advised and she would let Lorenza RANGEL know
--- NOTE | 2021-12-02 14:39 | NUR ---
Tried to call Report to per Marco A the nurses are in report and they will call back to get report on patient. Advised patient poultry picker is scheduled for 1500. Per Marco A that is fine
--- NOTE | 2021-12-02 15:46 | NUR ---
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 No bleeding noted dressed with 4x4 gauze and tegaderm
--- NOTE | 2021-12-02 15:49 | NUR ---
PAGER ID: [phone] MESSAGE: Uyn-Surg [phone] Re: 350S Elizabeth please call re: have you spoke to O/C urologis Addendum: 12/02/21 at 1615 by Yun Greenberg RN Dr Rubio stated he will contact the [facility] urologist
--- NOTE | 2021-12-02 16:00 | NUR ---
Bladder scan shoed 346ml's in bladder.
[2021-12-02] MEDS ORDERED: LIDOcaine 1% (10mg/ml) 2ml vial SQ ONE (16:30)
--- NOTE | 2021-12-02 16:34 | NUR ---
Per Dr Rubio he spoke to the urologist and he would like us to try and put in a 18 Gauge Chery with a urojet and if unable to place chery call Dr Rubio back and he will recontact the urologist.
[2021-12-02 17:00] VITALS: BP 92/66
[2021-12-02] MEDS ORDERED: JUVEN Smoothie Arginine/Glut./Ca2+Bmb (Juven 19.3pkt) 240ml cup PO SCH (17:30)
--- NOTE | 2021-12-02 17:36 | NUR ---
PAGER ID: [phone] MESSAGE: Yun Surg [phone] Re: Elizabeth 350B still unable to get catheter in with Charge assisting
--- NOTE | 2021-12-02 17:36 | NUR ---
Still unable to get chery catheter in using and 18 turkmen per request. Using sterile technique and the assistance of organizational effectiveness director Jennie. Addendum: 12/02/21 at 1741 by Yun Greenberg RN Per Dr Rubio he spoke to the Urologist and he will come by chun to see patient.
--- NOTE | 2021-12-02 18:28 | NUR ---
Problems reprioritized. Patient report given, questions answered & plan of care reviewed with Danielle Santos RN.
--- NOTE | 2021-12-02 18:30 | NUR ---
Patient in room JALEN 350. I have received report from DELGADO RANGEL and had the opportunity to ask questions and assume patient care. UROLOGIST COMING TO PUT A [place] CATH TO THE PATIENT.
[2021-12-02 19:00] VITALS: BP 93/54
[2021-12-02] MEDS ORDERED: oxybutynin 5mg tablet PO PRN (19:35)
--- NOTE | 2021-12-02 20:30 | NUR ---
PATIENT'S MEDICATIONS FOR TONIGHT NOT GIVEN YET, PATIENT ON DIALYSIS AT THIS TIME. WILL GIVE PM AND HS MEDS AFTER DIALYSIS.
[2021-12-02] MEDS: ondansetron/PF 4mg/2ml inj IV PRN (20:44)
[2021-12-02] MEDS: insulin glargine (Lantus) pen - multi-dose SQ SCH (21:00)
[2021-12-02 21:02] LABS: HBSAG SCREEN Negative (Negative)
[2021-12-02 21:58] LABS: BASOPHILS % (AUTO) 0.1 % (0-1); EOSINOPHILS % (AUTO) 0.1 % (0-6); HEMATOCRIT 43.3 % (42.0-52.0); HEMOGLOBIN 14.1 g/dl (14.0-17.9); LYMPHOCYTES # (AUTO) 0.5 X10'3 (1.1-4.8); LYMPHOCYTES % (AUTO) 6.1 % (21-51); MEAN CORPUSCULAR HEMOGLOBIN 29.4 PG (27.0-31.0); MEAN CORPUSCULAR HGB CONC 32.5 g/dL (33.0-36.5); MEAN CORPUSCULAR VOLUME 90.6 FL (78-98); MEAN PLATELET VOLUME 8.5 FL (7.4-10.4); MONOCYTES # (AUTO) 0.2 X10'3 (0-0.9); MONOCYTES % (AUTO) 2.2 % (2-12); NEUTROPHILS # (AUTO) 7.6 X10'3 (1.8-7.7); NEUTROPHILS % (AUTO) 91.5 % (42-75); PLATELET COUNT 177 X10'3 (140-440); RED BLOOD COUNT 4.78 X10'6 (4.70-6.10); RED CELL DISTRIBUTION WIDTH 19.5 % (11.5-14.5); WHITE BLOOD COUNT 8.3 X10'3 (4.5-11.0)
[2021-12-02 22:13] LABS: ALANINE AMINOTRANSFERASE 104 U/L (12-78); ALBUMIN 3.1 G/DL (3.4-5.0); ALBUMIN/GLOBULIN RATIO 0.8 (1.1-1.5); ALKALINE PHOSPHATASE 88 IU/L (46-116); ANION GAP 13 (8-16); ASPARTATE AMINO TRANSFERASE 216 U/L (10-37); BILIRUBIN,TOTAL 2.3 MG/DL (0.1-1.0); BLOOD UREA NITROGEN 26 MG/DL (7-18); BUN/CREATININE RATIO 6.4 (5.4-32.0); CALCIUM 8.1 MG/DL (8.5-10.1); CHLORIDE 98 MMOL/L (99-107); CREATININE 4.04 MG/DL (0.60-1.10); GLUCOSE 89 MG/DL (70-104); POTASSIUM 4.1 MMOL/L (3.5-5.1); SODIUM 138 MMOL/L (135-145); TOTAL CARBON DIOXIDE 26.8 MMOL/L (24-32); TOTAL PROTEIN 7.2 G/DL (6.4-8.2); eGFR 14 ML/MIN
[2021-12-02 22:56] LABS: NUCLEATED RED BLOOD CELLS 2 /100WBC (0-0); TOTAL CELLS COUNTED 100
[2021-12-02 22:57] LABS: PLATELET ESTIMATE NORMAL
[2021-12-02 22:58] LABS: ANISOCYTOSIS 2+; ELLIPTOCYTES FEW; TARGET CELLS FEW
[2021-12-02 23:00] VITALS: BP 98/63
[2021-12-03 06:00] VITALS: BP 90/50
[2021-12-03 06:12] LABS: LYMPHOCYTES # (AUTO) 0.9 X10'3 (1.1-4.8); MEAN CORPUSCULAR VOLUME 90.1 FL (78-98); MONOCYTES # (AUTO) 0.3 X10'3 (0-0.9); NEUTROPHILS # (AUTO) 5.7 X10'3 (1.8-7.7); NEUTROPHILS % (AUTO) 82.8 % (42-75); WHITE BLOOD COUNT 6.9 X10'3 (4.5-11.0)
[2021-12-03 06:16] LABS: BASOPHILS % (AUTO) 0.1 % (0-1); EOSINOPHILS % (AUTO) 0.1 % (0-6); HEMATOCRIT 42.4 % (42.0-52.0); MEAN CORPUSCULAR HEMOGLOBIN 29.8 PG (27.0-31.0); MEAN CORPUSCULAR HGB CONC 33.1 g/dL (33.0-36.5); MEAN PLATELET VOLUME 8.4 FL (7.4-10.4); PLATELET COUNT 179 X10'3 (140-440); RED BLOOD COUNT 4.71 X10'6 (4.70-6.10); RED CELL DISTRIBUTION WIDTH 18.7 % (11.5-14.5)
--- NOTE | 2021-12-03 06:31 | NUR ---
Problems reprioritized. Patient report given, questions answered & plan of care reviewed with DELGADO RANGEL.
[2021-12-03 06:54] LABS: ALANINE AMINOTRANSFERASE 105 U/L (12-78); ALBUMIN 2.8 G/DL (3.4-5.0); ALBUMIN/GLOBULIN RATIO 0.7 (1.1-1.5); ALKALINE PHOSPHATASE 88 IU/L (46-116); ANION GAP 21 (8-16); ASPARTATE AMINO TRANSFERASE 197 U/L (10-37); BILIRUBIN,TOTAL 2.3 MG/DL (0.1-1.0); BLOOD UREA NITROGEN 30 MG/DL (7-18); BUN/CREATININE RATIO 6.2 (5.4-32.0); CHLORIDE 95 MMOL/L (99-107); CREATININE 4.82 MG/DL (0.60-1.10); GLUCOSE 89 MG/DL (70-104); POTASSIUM 5.2 MMOL/L (3.5-5.1); SODIUM 137 MMOL/L (135-145); TOTAL CARBON DIOXIDE 21.5 MMOL/L (24-32); TOTAL PROTEIN 6.9 G/DL (6.4-8.2); eGFR 12 ML/MIN
[2021-12-03] MEDS: furosemide 40mg tablet PO SCH (08:00)
[2021-12-03] MEDS: sevelamer carbonate 800mg tablet PO SCH ×3 (08:00→20:14)
--- NOTE | 2021-12-03 08:30 | NUR ---
Contacted Pharmacy re: omni empty no protonix they will send up
[2021-12-03] MEDS: normal saline 1000ml 1,000 ML IV SCH (09:11)
[2021-12-03] MEDS: clopidogrel 75mg tablet PO SCH (09:12)
[2021-12-03] MEDS: traMADol 50MG tablet PO PRN (09:12)
[2021-12-03] MEDS: apixaban 2.5mg tablet PO SCH ×2 (09:12→20:08)
[2021-12-03] MEDS: docusate sod 100mg capsule PO SCH ×2 (09:12→20:14)
[2021-12-03] MEDS: midodrine 5mg tablet PO SCH ×3 (09:12→16:20)
[2021-12-03] MEDS: cefepime 1GM/NS ADD-VANTAGE 100 ML IV SCH (09:16)
[2021-12-03] MEDS: pravastatin 40mg tablet PO SCH (09:19)
[2021-12-03] MEDS: OMEGA-3/DHA/EPA/FISH OIL 1 EACH CAPSULE.DR PO SCH (09:19)
[2021-12-03 10:00] VITALS: BP 96/67
[2021-12-03] MEDS ORDERED: midodrine 5mg tablet PO PRN (10:09)
[2021-12-03] MEDS: linezolid 600mg/300ml PREMIX 300 ML IV SCH ×2 (10:33→20:05)
[2021-12-03 10:41] VITALS: BP 96/67
--- NOTE | 2021-12-03 11:54 | NUR ---
Called pharmacy a 2nd time and they states again they will bring it up in a few minutes
[2021-12-03] MEDS: pantoprazole 40mg Tablet.DR PO SCH (12:24)
--- NOTE | 2021-12-03 13:34 | NUR ---
Patient appears to be having some swallowing issues Aspirations precautions. Renvela not given due to patient not eating.
--- NOTE | 2021-12-03 13:51 | NUR ---
PAGER ID: [phone] MESSAGE: Yun Surg [phone] Re: [id number] can I please order a swallow eval on him? He is having a hard time today Addendum: 12/03/21 at 1726 by Yun Greenberg RN Advised Dr Rubio that patient is having difficulty with swollowing at times. Does ok if someone is there coaching patient to guera quan when swollowing. Per Dr Rubio change patients diet to Full Liquid.
--- NOTE | 2021-12-03 16:22 | NUR ---
PAGER ID: [phone] MESSAGE: Yun Surg [phone] Re: Bud 350B Blood in colostomy please call can I send for occult Addendum: 12/03/21 at 1722 by Yun Greenberg RN When Dr Rubio called back I advised that patients stated patient has been having blood from stoma at times. She is suppose to be following up with a specialist. Per Dr Rubio no need for stool sample lab at this time will continue to monitor patients bleeding and make sure patient has a CBC in am will monitor bleeding patient on Eliquis.
--- NOTE | 2021-12-03 18:46 | NUR ---
Called and left message for Dr Rubio to call re: patient . NOC shift RN aware I am concerned because patient is more sleepy, Vitals stable but concerned patient might have aspirated today does he want a chest xray. Danielle Menjivar RN will follow through.
--- NOTE | 2021-12-03 18:47 | NUR ---
Problems reprioritized. Patient report given, questions answered & plan of care reviewed with Danielle Santos RN.
--- NOTE | 2021-12-03 18:50 | NUR ---
Patient in room JALEN 350. I have received report from DELGADO RANGEL and had the opportunity to ask questions and assume patient care.
[2021-12-03 19:00] VITALS: BP 91/55
[2021-12-03] MEDS: insulin glargine (Lantus) pen - multi-dose SQ SCH (22:09)
[2021-12-04] VITALS: BP 79/57
[2021-12-04 05:00] VITALS: BP 85/54
--- NOTE | 2021-12-04 06:38 | NUR ---
Problems reprioritized. Patient report given, questions answered & plan of care reviewed with FLORECITA RANGEL.
[2021-12-04 06:39] LABS: BASOPHILS % (AUTO) 0.1 % (0-1); EOSINOPHILS % (AUTO) 0 % (0-6); HEMOGLOBIN 14.6 g/dl (14.0-17.9); MONOCYTES # (AUTO) 0.9 X10'3 (0-0.9); NEUTROPHILS # (AUTO) 8.6 X10'3 (1.8-7.7)
[2021-12-04 06:41] LABS: HEMATOCRIT 45.5 % (42.0-52.0); LYMPHOCYTES % (AUTO) 9.4 % (21-51); MEAN CORPUSCULAR HEMOGLOBIN 29.4 PG (27.0-31.0); MEAN CORPUSCULAR HGB CONC 32.1 g/dL (33.0-36.5); MEAN CORPUSCULAR VOLUME 91.5 FL (78-98); MEAN PLATELET VOLUME 8.6 FL (7.4-10.4); MONOCYTES % (AUTO) 8.2 % (2-12); NEUTROPHILS % (AUTO) 82.3 % (42-75); PLATELET COUNT 187 X10'3 (140-440); RED BLOOD COUNT 4.97 X10'6 (4.70-6.10); WHITE BLOOD COUNT 10.4 X10'3 (4.5-11.0)
--- NOTE | 2021-12-04 06:43 | NUR ---
Patient in room JALEN 350. I have received report from Danielle Santos and had the opportunity to ask questions and assume patient care.
[2021-12-04 07:09] LABS: ALANINE AMINOTRANSFERASE 155 U/L (12-78); ALBUMIN 2.6 G/DL (3.4-5.0); ALBUMIN/GLOBULIN RATIO 0.6 (1.1-1.5); ALKALINE PHOSPHATASE 88 IU/L (46-116); BLOOD UREA NITROGEN 45 MG/DL (7-18); BUN/CREATININE RATIO 8.2 (5.4-32.0); CALCIUM 7.7 MG/DL (8.5-10.1); CHLORIDE 94 MMOL/L (99-107); CREATININE 5.52 MG/DL (0.60-1.10); GLUCOSE 112 MG/DL (70-104); SODIUM 134 MMOL/L (135-145); TOTAL PROTEIN 6.8 G/DL (6.4-8.2); eGFR 10 ML/MIN
[2021-12-04] MEDS: furosemide 40mg tablet PO SCH (07:27)
[2021-12-04] MEDS: apixaban 2.5mg tablet PO SCH ×2 (07:33→21:11)
[2021-12-04] MEDS: pantoprazole 40mg Tablet.DR PO SCH (07:33)
[2021-12-04] MEDS: midodrine 5mg tablet PO SCH ×3 (07:33→16:38)
[2021-12-04] MEDS: cefepime 1GM/NS ADD-VANTAGE 100 ML IV SCH (07:35)
[2021-12-04] MEDS: OMEGA-3/DHA/EPA/FISH OIL 1 EACH CAPSULE.DR PO SCH (07:46)
[2021-12-04] MEDS: docusate sod 100mg capsule PO SCH ×2 (07:46→20:00)
[2021-12-04] MEDS: sevelamer carbonate 800mg tablet PO SCH ×3 (07:46→21:11)
[2021-12-04 07:59] LABS: ASPARTATE AMINO TRANSFERASE 244 U/L (10-37)
[2021-12-04] MEDS ORDERED: EPOETIN ALFA-EPBX 20,000 UNIT/ML 1 ML MDV IV ONE (08:00)
[2021-12-04] MEDS ORDERED: albumin (human) 25% 100ml IV 100 ML IV PRN (08:00)
[2021-12-04] MEDS ORDERED: heparin 1,000 units/ml 10ml inj IV ONE (08:00)
[2021-12-04] MEDS ORDERED: heparin 1,000unit/ml 10ml vial 10 ML IV ONE (08:00)
[2021-12-04 08:02] LABS: ANION GAP 18 (8-16); POTASSIUM 6.4 MMOL/L (3.5-5.1)
[2021-12-04 08:13] LABS: ANISOCYTOSIS 2+; PLATELET ESTIMATE NORMAL
[2021-12-04 08:14] LABS: ELLIPTOCYTES FEW
[2021-12-04 08:15] LABS: TARGET CELLS FEW
--- NOTE | 2021-12-04 08:33 | NUR ---
SW Dr. Cottrell and informed him of pt's potassium of 6.4. Dr. Cottrell instructed me to have HD nurse start his dialysis stat. Called HD nurse and she said she is driving to hospital and will start naveen.
[2021-12-04] MEDS: clopidogrel 75mg tablet PO SCH (08:38)
[2021-12-04] MEDS: linezolid 600mg/300ml PREMIX 300 ML IV SCH ×2 (08:38→21:12)
[2021-12-04] MEDS ORDERED: LIDOcaine 1% (10mg/ml) 2ml vial SQ ONE (10:55)
[2021-12-04 15:26] VITALS: BP 87/60
[2021-12-04] MEDS: traMADol 50MG tablet PO PRN (16:38)
[2021-12-04] MEDS: pravastatin 40mg tablet PO SCH (16:38)
[2021-12-04 18:00] VITALS: BP 89/65
[2021-12-04] MEDS: insulin glargine (Lantus) pen - multi-dose SQ SCH (21:00)
--- NOTE | 2021-12-04 21:00 | NUR ---
Pts daughter in room, she was wanting her dad not to be disturbed for VS. VS taken with meds and pt had a difficulty time swallowing the Renvela. Daughter had a discussion about code status and she was informed he was a DNR not a comfort care. Daughter stated that she will talk with her mom as he has been stating that he is "ready to see his mom", feeling that comfort care is more of what they are wanting.
[2021-12-04 22:00] VITALS: BP 73/59
[2021-12-05] MEDS: traMADol 50MG tablet PO PRN (03:57)
--- NOTE | 2021-12-05 06:37 | NUR ---
Patient in room JALEN 350. I have received report from Nahomy RANGEL and had the opportunity to ask questions and assume patient care.
[2021-12-05 06:41] VITALS: BP 82/56
[2021-12-05] MEDS: cefepime 1GM/NS ADD-VANTAGE 100 ML IV SCH (07:44)
[2021-12-05] MEDS: OMEGA-3/DHA/EPA/FISH OIL 1 EACH CAPSULE.DR PO SCH (08:00)
[2021-12-05] MEDS ORDERED: allopurinol 100mg tablet PO SCH (08:00)
[2021-12-05] MEDS: clopidogrel 75mg tablet PO SCH (08:00)
[2021-12-05] MEDS: docusate sod 100mg capsule PO SCH ×2 (08:00→19:58)
[2021-12-05] MEDS: midodrine 5mg tablet PO SCH ×2 (08:00→12:00)
[2021-12-05] MEDS: apixaban 2.5mg tablet PO SCH (08:00)
[2021-12-05] MEDS: furosemide 40mg tablet PO SCH (08:00)
--- NOTE | 2021-12-05 08:00 | NUR ---
at bedside with pt, declined for nursing to preform accu-check on pt this AM, states she doesn't feel it is necessary at this point in the patients care. Will continue to monitor.
[2021-12-05] MEDS: linezolid 600mg/300ml PREMIX 300 ML IV SCH (08:47)
--- NOTE | 2021-12-05 09:52 | NUR ---
PAGER ID: [phone] MESSAGE: [place] matta 350B family is ready to speak with you regarding comfort measures whenever your available [facility] [id number]
[2021-12-05] MEDS ORDERED: hyoscyamine 0.125mg TAB.SUBL SL PRN (11:40)
[2021-12-05] MEDS ORDERED: LORazepam 0.5 MG tablet PO PRN (11:40)
[2021-12-05] MEDS ORDERED: morphine ORAL 5MG/0.25 ML (Conc. morphine) oral syringe PO PRN (11:40)
[2021-12-05] MEDS ORDERED: LORazepam 1 MG tablet PO PRN (11:40)
--- NOTE | 2021-12-05 12:14 | NUR ---
Per CLAIRE Guerrero, Dr Red stated in the morning meeting to DC telemetry monitoring when pt is placed on Comfort Care.
--- NOTE | 2021-12-05 16:36 | NUR ---
F/u 12/05: Noted pt now DNR w/ comfort care per EMR. Pt on full liquids diet; TIARA d/w RN who reports pt issues taking in solids family requests liquids only at this time. Colostomy -100ml output past two days per EMR. Will continue to follow. Rec: 1. continue full liquids per family request 2. bowel care per rx; colostomy output WNL per EMR Addendum: 12/05/21 at [address] Amended: Links added.
--- NOTE | 2021-12-05 17:12 | NUR ---
COMPANY MANAGER documentation: I have reviewed and agree with all interventions, assessments performed and documented by Shantelle Lopez LVN.
[2021-12-05 22:00] VITALS: BP 93/62
[2021-12-05] MEDS: morphine 10mg/0.5ml (conc. morphine) oral syringe PO PRN (22:14)
[2021-12-06] MEDS: normal saline 1000ml 1,000 ML IV SCH (00:20)
[2021-12-06] MEDS: morphine 10mg/0.5ml (conc. morphine) oral syringe PO PRN ×2 (03:15→09:05)
--- NOTE | 2021-12-06 06:34 | NUR ---
Problems reprioritized. Patient report given, questions answered & plan of care reviewed with Seema RANGEL. Addendum: 12/06/21 at 0635 by Nahomy Lee RN Amended: Links added.
--- NOTE | 2021-12-06 06:45 | NUR ---
Patient in room JALEN 350. I have received report from Nahomy RANGEL and had the opportunity to ask questions and assume patient care.
[2021-12-06] MEDS ORDERED: MORP10SY6 PO ×3 (09:54→11:08)
[2021-12-06] MEDS ORDERED: HYOS0.1277 SL (09:54)
[2021-12-06] MEDS ORDERED: Lorazepam PO (09:54)
[2021-12-06] MEDS ORDERED: ONDA4TAB12 PO (09:54)
[2021-12-06] MEDS ORDERED: morphine 10mg/0.5ml (conc. morphine) oral syringe PO PRN (10:05)
--- NOTE | 2021-12-06 10:15 | NUR ---
PAGER ID: [phone] MESSAGE: 350B- [facility] called and does not have morphine liquid. [facility] [address] [facility]. can you escript to [facility] [address]?- Seema [phone]
--- NOTE | 2021-12-06 13:48 | NUR ---
Patient discharged home on hospice at 1330 transported by [facility] [employer]. IV removed prior to D/c, cannula intact. discharge instructions reviewed with , understanding verbalized.
== END 2021-12-06 13:42 | disposition hospice, home (50) | DRG 853 ==
LOC: ER 20:03 → ED HOLD 11-30 00:23 → SUR 3N 11-30 07:54
PROVIDERS: ADMIT Family Medicine; ATTEND Family Medicine
PROC: 05763ZZ Dilation of Left Subclavian Vein, Percutaneous Approach (ICD-10-PCS; principal; 2021-12-02)
PROC: B51N1ZZ Fluoroscopy of Left Upper Extremity Veins using Low Osmolar Contrast (ICD-10-PCS; 2021-12-02)
PROC: B5171ZZ Fluoroscopy of Left Subclavian Vein using Low Osmolar Contrast (ICD-10-PCS; 2021-12-02)
PROC: 0T9B80Z Drainage of Bladder with Drainage Device, Via Natural or Artificial Opening Endoscopic (ICD-10-PCS; 2021-12-02)
PROC: 5A1D70Z Performance of Urinary Filtration, Intermittent, Less than 6 Hours Per Day (ICD-10-PCS; 2021-12-02)
PROC: 5A1D70Z Performance of Urinary Filtration, Intermittent, Less than 6 Hours Per Day (ICD-10-PCS; 2021-12-04)
DX: A41.9 Sepsis, unspecified organism (principal); G93.41 Metabolic encephalopathy; N18.6 End stage renal disease; I21.A1 Myocardial infarction type 2; I13.2 Hypertensive heart and chronic kidney disease with heart failure and with stage 5 chronic kidney disease, or end stage renal disease; I42.9 Cardiomyopathy, unspecified; I50.22 Chronic systolic (congestive) heart failure; I82.412 Acute embolism and thrombosis of left femoral vein; N39.0 Urinary tract infection, site not specified; I87.1 Compression of vein; L03.115 Cellulitis of right lower limb; Z51.5 Encounter for palliative care; Z66 Do not resuscitate; E11.22 Type 2 diabetes mellitus with diabetic chronic kidney disease; Z53.20 Procedure and treatment not carried out because of patient's decision for unspecified reasons; M71.22 Synovial cyst of popliteal space [Baker], left knee; M71.21 Synovial cyst of popliteal space [Baker], right knee; I95.9 Hypotension, unspecified; E78.00 Pure hypercholesterolemia, unspecified; I25.10 Atherosclerotic heart disease of native coronary artery without angina pectoris; E87.5 Hyperkalemia; I48.91 Unspecified atrial fibrillation; M10.9 Gout, unspecified; I25.2 Old myocardial infarction; Z79.01 Long term (current) use of anticoagulants; Z90.49 Acquired absence of other specified parts of digestive tract; Z93.3 Colostomy status; Z95.0 Presence of cardiac pacemaker; Z99.2 Dependence on renal dialysis; Z88.8 Allergy status to other drugs, medicaments and biological substances; Z79.899 Other long term (current) drug therapy; Z88.6 Allergy status to analgesic agent; N40.1 Benign prostatic hyperplasia with lower urinary tract symptoms; R33.8 Other retention of urine
CPT/HCPCS: 36415; 36902; 71045; 80048; 80053; 82948; 83036; 83605; 83735; 83880; 84100; 84145; 84443; 84484; 85007; 85008; 85025; 85730; 87040; 87070; 87340; 93005; 93925; 93970; 93971; 97110; 97162; 97530; 99291; A4314; A4620; A6212; A6213; A6250; A6258; A6402; A6449; C1725; C1758; C1769; C1894; G0257; G0378; J0295; J0692; J1644; J1815; J2020; J2250; J2405; J2930; J3010; J3370; J3490; J7030; J7040; J7512; P9047; Q9967